=== PATIENT | female | born 1935 | race Hispanic/Latino ===

== ENCOUNTER 2020-10-30 10:30 | Inpatient (IN) | payer MEDICARE ==
--- NOTE | 2020-10-30 12:51 | XRay Report ---
RIGHT HIP 2 VIEW(S) INDICATION / CLINICAL INFORMATION: pain s/p fall COMPARISON: None available. FINDINGS: BONES / JOINT(S): No acute fracture or subluxation. No significant arthritis. Patient is status post open reduction internal fixation of the right femoral neck. SOFT TISSUES: No significant abnormality. ADDITIONAL FINDINGS: None. Signer Name: Srinivas wOen DO Signed: 10/30/2020 12:46 PM Workstation Name: [id number]
--- NOTE | 2020-10-30 13:28 | Emergency Department Report ---
ED General Adult HPI - General Chief complaint: Fall Stated complaint: FALL/RT HIP AND BACK Time Seen by Provider: 10/30/20 11:53 Source: patient, EMS Mode of arrival: Stretcher Limitations: No Limitations - History of Present Illness Initial comments: The patient presents to the emergency department the chief complaint of right hip pain. Patient states she got up to get water and fell in the bathroom onto her right hip. Patient denies loss of consciousness or hitting her head. Patient states the pain is worse with movement. The patient has a history of a hip replacement on the right side. Patient denies chest pain, shortness breath, or headache. -: Sudden Location: lower extremity Radiation: non-radiation Severity scale (0 -10): 4 Quality: aching Consistency: constant Improves with: rest Worsens with: movement Associated Symptoms: denies other symptoms Treatments Prior to Arrival: none - Related Data Previous Rx's Medication Instructions Recorded Last Taken Type traMADoL [Ultram] 50 mg PO Q6HR PRN #15 tablet 10/30/20 Unknown Rx Allergies Allergy/AdvReac Type Severity Reaction Status Date / Time codeine Allergy Rash Verified 10/30/20 11:36 ED Review of Systems ROS: Stated complaint: FALL/RT HIP AND BACK Other details as noted in HPI Comment: All other systems reviewed and negative Constitutional: denies: chills, fever Eyes: denies: eye pain, eye discharge, vision change ENT: denies: ear pain, throat pain Respiratory: denies: cough, shortness of breath, wheezing Cardiovascular: denies: chest pain, palpitations Endocrine: no symptoms reported Gastrointestinal: denies: abdominal pain, nausea, diarrhea Genitourinary: denies: urgency, dysuria, discharge Musculoskeletal: denies: back pain, joint swelling, arthralgia Skin: denies: rash, lesions Neurological: denies: headache, weakness, paresthesias Psychiatric: denies: anxiety, depression Hematological/Lymphatic: denies: easy bleeding, easy bruising ED Past Medical Hx - Past Medical History Previous Medical History?: Yes Hx Hypertension: Yes - Social History Smoking Status: Current Every Day Smoker Substance Use Type: None - Medications Home Medications: Home Medications Medication Instructions Recorded Confirmed Last Taken Type traMADoL [Ultram] 50 mg PO Q6HR PRN #15 tablet 10/30/20 Unknown Rx ED Physical Exam - General Limitations: No Limitations General appearance: alert, in no apparent distress - Head Head exam: Present: atraumatic, normocephalic - Eye Eye exam: Present: normal appearance, PERRL, EOMI - ENT ENT exam: Present: mucous membranes moist - Neck Neck exam: Present: normal inspection - Respiratory Respiratory exam: Present: normal lung sounds bilaterally. Absent: respiratory distress - Cardiovascular Cardiovascular Exam: Present: regular rate, normal rhythm. Absent: systolic murmur, diastolic murmur, rubs, gallop - GI/Abdominal GI/Abdominal exam: Present: soft, normal bowel sounds. Absent: distended, tenderness - Extremities Exam Extremities exam: Present: other (Tenderness palpation right hip) - Back Exam Back exam: Present: normal inspection - Neurological Exam Neurological exam: Present: alert, oriented X3, CN II-XII intact. Absent: motor sensory deficit - Psychiatric Psychiatric exam: Present: normal affect, normal mood - Skin Skin exam: Present: warm, dry, intact, normal color. Absent: rash ED Medical Decision Making - Radiology Data Radiology results: report reviewed Critical care attestation.: If time is entered above; I have spent that time in minutes in the direct care of this critically ill patient, excluding procedure time. ED Disposition Clinical Impression: Hip pain, right, Fall Disposition: DC- TO HOME OR SELFCARE Is pt being admited?: No Does the pt Need Aspirin: No Condition: Stable Instructions: Joint Pain, Hip Pain Additional Instructions: return if worse Referrals: PRIMARY MD YANNICK [Primary Care Provider] - 3-5 Days POLLY OCHOA MD [Staff Physician] - 3-5 Days Time of Disposition: 13:29
[2020-10-30] MEDS ORDERED: traMADol 50 MG TAB PO ONE (13:43)
--- NOTE | 2020-10-30 18:44 | Cat Scan Report ---
CT lower extremity RT wo con INDICATION: hip pain s/p fall can't bear. TECHNIQUE: All CT scans at this location are performed using the following dose modulation technique: Automated exposure control. CONTRAST: None. COMPARISON: Plain films earlier the same day. FINDINGS: Mildly comminuted, nondisplaced fractures involving the lateral aspect of the right sacrum, lateral aspect of the right superior ramus and the mid inferior pubic ramus. No additional fractures identified. Underlying osteopenia is moderate. 3 titanium screws affix the right femoral neck. Evaluation of the soft tissues demonstrates atherosclerotic ectasia of the aorta and iliac system and noninflamed diverticulosis at the sigmoid colon. No significant soft tissue injury. 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 IMPRESSION: 1. Nondisplaced fractures involving the right sacrum, right superior pubic ramus and right inferior p ubic ramus. 2. Underlying osteopenia. 3. Previous placement of 3 titanium screws at the right femoral neck. 4. Noninflamed colonic diverticulosis. 5. 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 Signer Name: Blake Ricks MD Signed: 10/30/2020 6:40 PM Workstation Name: [id number]
--- NOTE | 2020-10-30 19:00 | History and Physical Report ---
History of Present Illness Chief complaint: I fell and landed on my hip History of present illness: 85 YO Female with HTN, Nicotine Dependence presents ED for evaluation. Patient reports "I fell landed on my hip". Patient states that she was in her usual state of health. Patient states that she got up to get water while in the bathroom and fell onto the floor landing on her right hip. Patient denies loss of consciousness or striking her head. Patient states that she was unable to stand due to pain. EMS was notified and upon arrival the patient was found to be in distress and subsequently transported to [facility] for further care and evaluation of the aforementioned symptoms. The patient was seen and evaluated in the emergency department. All lab and imaging studies reviewed. Patient underwent CT scan of the pelvis and was found to have a sacral fracture as well as an inferior and superior pubic rami fractures which were not amenable to surgical invention at this time. Patient found to have intractable pain and is unable to stand. Patient admitted to surgical floor due to increased risk of worsening symptoms. Patient treated with pain control, supportive care. Physical therapy consulted. Patient denies fever, chills, chest pain, palpitation, productive cough, skin rash, recent ill contacts, or known exposure to COVID-19. No prior admission for review. No medication listed at time of admission for reconciliation. Advanced care planning conducted in ED. Case management consulted for assistance with discharge planning and long-term facility versus rehab placement. Past History Past Medical History: hypertension, other (See HPI) Past Surgical History: No surgical history, Other (Reviewed) Social history: , smoking. denies: alcohol abuse, prescription drug abuse Family history: hypertension Medications and Allergies Allergies Allergy/AdvReac Type Severity Reaction Status Date / Time codeine Allergy Rash Verified 10/30/20 11:36 Home Medications Medication Instructions Recorded Confirmed Last Taken Type traMADoL [Ultram] 50 mg PO Q6HR PRN #15 tablet 10/30/20 Unknown Rx Review of Systems Constitutional: other (I fell and landed on my hip), no weight loss, no weight gain, no fever, no chills Ears, nose, mouth and throat: no ear pain, no ear discharge, no decreased hearing, no nose pain, no nasal congestion, no nasal discharge Breasts: no change in shape Cardiovascular: no chest pain, no syncope Respiratory: no cough, no cough with sputum, no excessive sputum Gastrointestinal: no abdominal pain, no nausea, no vomiting Genitourinary Female: no flank pain, no dysuria, no urinary frequency, no urgency Rectal: no pain, no incontinence Musculoskeletal: other (Hip pain), no neck stiffness, no neck pain, no arm numbness/tingling, no low back pain Integumentary: no rash, no pruritis, no sores, no wounds, no boils Neurological: no head injury, no paralysis, no weakness, no parathesias, no tingling, no seizures Psychiatric: no anxiety, no sleep disturbances, no insomnia, no change in appetite, no change in libido, no suicidal ideation Endocrine: no cold intolerance, no heat intolerance, no polyphagia, no poly dipsia, no nocturia, no excessive sweating, no flushing Hematologic/Lymphatic: no easy bruising, no lymphadenopathy Allergic/Immunologic: no urticaria, no allergic rhinitis, no wheezing, no persistent infections, no angioedema Exam - Constitutional Vitals: Temp Pulse Resp BP Pulse Ox 75 18 163/58 72 L 10/30/20 12:01 10/30/20 15:31 10/30/20 15:31 10/30/20 15:31 General appearance: Present: mild distress - EENT Eyes: Present: PERRL ENT: hearing intact, clear oral mucosa - Neck Neck: Present: supple, normal ROM - Respiratory Respiratory effort: normal Respiratory: bilateral: CTA - Cardiovascular Heart Sounds: Present: S1 & S2. Absent: rub, click - Extremities Extremities: pulses symmetrical, No edema Peripheral Pulses: within normal limits - Abdominal General gastrointestinal: Present: soft, non-tender, non-distended, normal bowel sounds Female genitourinary: Present: normal - Integumentary Integumentary: Present: clear, warm, dry - Musculoskeletal Musculoskeletal: generalized weakness - Psychiatric Psychiatric: appropriate mood/affect, intact judgment & insight - Neurologic Neurologic: CNII-XII intact, moves all extremities, no gait normal Assessment and Plan - Patient Problems (1) Pelvic fracture Current Visit: Yes Status: Acute Plan to address problem: CT scan pelvis, supportive care, pain control, physical therapy consulted. Weightbearing as per physical therapy recommendations. (2) Sacral fracture Current Visit: Yes Status: Acute Plan to address problem: CT scan pelvis, supportive care, pain control, physical therapy consulted. Weightbearing as per physical therapy recommendation. (3) Uncontrolled pain Current Visit: Yes Status: Acute Plan to address problem: Pain control, supportive care, (4) Debility Current Visit: Yes Status: Acute Plan to address problem: Physical therapy consulted, case management consulted for assistance with discharge to long-term facility versus rehab placement. (5) Nicotine dependence Current Visit: Yes Status: Acute Qualifiers: Nicotine product type: cigarettes Substance use status: in withdrawal Qualified Code(s): F17.213 - Nicotine dependence, cigarettes, with withdrawal Plan to address problem: Smoke cessation counseling, supportive care, behavior change counseling, +15 minutes. (6) DVT prophylaxis Current Visit: Yes Status: Acute Plan to address problem: SCD bilateral lower extremities while in bed, prophylactic anticoagulation (7) Advance care planning Current Visit: Yes Status: Acute Plan to address problem: Disease education conducted, care plan discussed, diagnosis discussed, prognosis discussed. Patient is full code. Patient acknowledges understanding agree with care plan, +30 minutes.
[2020-10-30] MEDS ORDERED: MORPHINE 4 MG/1 ML INJ IV ONE (19:08)
[2020-10-30] MEDS ORDERED: ONDANSETRON 4 MG/2 ML INJ IV ONE (19:08)
[2020-10-30] MEDS ORDERED: ONDANSETRON 4 MG/2 ML INJ IV PRN (19:12)
[2020-10-30] MEDS ORDERED: ACETAMINOPHEN 325 MG TAB PO PRN (19:12)
[2020-10-30] MEDS ORDERED: ALBUTEROL 2.5 MG/3 ML NEBU IH PRN (19:12)
[2020-10-30] MEDS ORDERED: SODIUM CHLORIDE 0.9% 1000 ML 1,000 ML IV SCH (19:15)
[2020-10-30 19:33] LABS: Basophils # (Auto) 0.1 K/mm3 (0.0-0.1); Basophils % (Auto) 0.9 % (0.0-1.8); Eosinophils % (Auto) 0.2 % (0.0-4.3); Hematocrit 38.3 % (30.3-42.9); Lymphocytes % (Auto) 10.9 % (13.4-35.0); Mean Corpuscular HGB Conc 34 % (30-34); Mean Corpuscular Volume 86 fl (79-97); Monocytes # (Auto) 0.6 K/mm3 (0.0-0.8); Monocytes % (Auto) 5.8 % (0.0-7.3); Platelet Count 251 K/mm3 (140-440); Red Blood Count 4.45 M/mm3 (3.65-5.03); Red Cell Distribution Width 14.2 % (13.2-15.2)
[2020-10-30 19:40] LABS: Alanine Aminotransferase 12 units/L (7-56); Blood Urea Nitrogen 14 mg/dL (7-17); Calcium 9.4 mg/dL (8.4-10.2); Hemolysis Index 6
[2020-10-30 19:46] LABS: BUN/Creatinine Ratio 20
[2020-10-30 19:57] LABS: Partial Thromboplastin Time 31.9 Sec. (24.2-36.6)
[2020-10-30] MEDS: HYDROmorphone 1 MG/1 ML INJ IV PRN (20:20)
[2020-10-30] MEDS: HEPARIN 5,000 UNIT/1 ML VIAL SUB-Q SCH (22:10)
[2020-10-31] MEDS: HYDROmorphone 1 MG/1 ML INJ IV PRN ×2 (00:10→20:41)
[2020-10-31 07:01] LABS: Alanine Aminotransferase 10 units/L (7-56); Albumin 3.7 g/dL (3.9-5); Blood Urea Nitrogen 16 mg/dL (7-17); Calcium 9.3 mg/dL (8.4-10.2); Hemolysis Index 36
[2020-10-31 07:02] LABS: BUN/Creatinine Ratio 23
[2020-10-31 08:27] LABS: Basophils # (Auto) 0.1 K/mm3 (0.0-0.1); Basophils % (Auto) 0.8 % (0.0-1.8); Eosinophils # (Auto) 0.1 K/mm3 (0.0-0.4); Eosinophils % (Auto) 0.8 % (0.0-4.3); Hematocrit 35.5 % (30.3-42.9); Hemoglobin 12.1 gm/dl (10.1-14.3); Lymphocytes % (Auto) 10.6 % (13.4-35.0); Mean Corpuscular HGB Conc 34 % (30-34); Mean Corpuscular Volume 86 fl (79-97); Monocytes # (Auto) 0.6 K/mm3 (0.0-0.8); Monocytes % (Auto) 6.6 % (0.0-7.3); Platelet Count 228 K/mm3 (140-440); Red Blood Count 4.13 M/mm3 (3.65-5.03)
[2020-10-31] MEDS: HEPARIN 5,000 UNIT/1 ML VIAL SUB-Q SCH ×2 (09:32→23:12)
[2020-10-31] MEDS: oxyCODONE /ACETAMINOPHEN 5-325MG TAB PO PRN (12:51)
--- NOTE | 2020-10-31 15:10 | Progress Note ---
Assessment and Plan 85 YO Female with HTN, Nicotine Dependence presents ED for evaluation after having a fall. Patient underwent CT scan of the pelvis and was found to have a sacral fracture as well as an inferior and superior pubic rami fractures which were not amenable to surgical invention at this time. Patient found to have intractable pain and is unable to stand. Patient admitted to surgical floor due to increased risk of worsening symptoms. A/P -- Pelvic fracture cont supportive care, pain control, physical therapy consulted. Weightbearing as per physical therapy recommendations. PT eval pending -- Sacral fracture supportive care, pain control, physical therapy consulted. Weightbearing as per physical therapy recommendation. -- Uncontrolled pain Pain control, supportive care, -- Debility Physical therapy consulted, case management consulted for assistance with discharge to shelter facility versus rehab placement. -- Nicotine dependence Smoke cessation counseling, supportive care, behavior change counseling done --DVT prophylaxis SCD bilateral lower extremities while in bed, prophylactic anticoagulation --Disposition: Patient needs subacute rehab. Pending placement Daily clinical course: 10/31/20: resting on bed, appears uncomfortable, cont pain Mx as needed, Pending PT eval Subjective Date of service: 10/31/20 Interval history: Patient seen and examined no acute event o/n vitals stable c/o pelvic pain and unable to move w/o assistance PT eval pending Objective - Exam Narrative Exam: General appearance: Present: no acute distress, well-nourished elderly WF - EENT Eyes: PERRL, EOM intact ENT: hearing intact, clear oral mucosa Ears: bilateral: normal - Neck Neck: supple, normal ROM - Respiratory Respiratory effort: normal Respiratory: bilateral: CTA - Breasts Breasts: normal - Cardiovascular Rhythm: regular Heart Sounds: Present: S1 & S2. Absent: gallop, rub Extremities: pulses intact, No edema, normal color, Full ROM - Gastrointestinal General gastrointestinal: Present: soft, non-tender, non-distended, normal bowel sounds - Integumentary Integumentary: clear, warm, dry - Musculoskeletal Musculoskeletal: 1, strength equal bilaterally - Neurologic Neurologic: moves all extremities - Psychiatric Psychiatric: memory intact, appropriate mood/affect, intact judgment & insight - Constitutional Vitals: Vital Signs - 12hr 10/31/20 10/31/20 10/31/20 07:33 10:00 11:05 Temperature 98.2 F Pulse Rate 86 Respiratory 18 18 Rate Respiratory 18 Rate [Right Hip ] Blood Pressure 162/76 [Left] O2 Sat by Pulse 94 95 96 Oximetry 10/31/20 10/31/20 12:05 12:51 Temperature 98.9 F Pulse Rate 87 Respiratory 18 18 Rate Respiratory Rate [Right Hip ] Blood Pressure 131/92 [Left] O2 Sat by Pulse 96 Oximetry - Labs CBC & Chem 7: 10/31/20 07:36 10/31/20 04:44 Labs: Abnormal lab results 10/30/20 10/31/20 10/31/20 Range/Units 19:02 04:44 07:36 Lymph % (Auto) 10.9 L 10.6 L (13.4-35.0) % Lymph # (Auto) 1.0 L 1.0 L (1.2-5.4) K/mm3 Seg Neutrophils % 82.2 H 81.2 H (40.0-70.0) % Seg Neutrophils # 7.8 H 8.0 H (1.8-7.7) K/mm3 Carbon Dioxide 19 L (22-30) mmol/L Glucose 61 L (65-100) mg/dL Albumin 3.7 L (3.9-5) g/dL
[2020-11-01] MEDS ORDERED: hydrALAZINE 20 MG/1 ML INJ IV PRN (08:54)
[2020-11-01] MEDS: PANTOPRAZOLE 20 MG TAB PO SCH (09:24)
[2020-11-01] MEDS: HEPARIN 5,000 UNIT/1 ML VIAL SUB-Q SCH ×2 (09:24→22:31)
[2020-11-01] MEDS: amLODIPine 5 MG TAB PO SCH (09:24)
[2020-11-01] MEDS: oxyCODONE /ACETAMINOPHEN 5-325MG TAB PO PRN ×2 (09:36→22:30)
[2020-11-01] MEDS ORDERED: NON-FORMULARY EACH (Omeprazole [Omeprazole] 20 MG Tablet.Dr) PO SCH (10:00)
--- NOTE | 2020-11-01 13:09 | Progress Note ---
Assessment and Plan 85 YO Female with HTN, Nicotine Dependence presents ED for evaluation after having a fall. Patient underwent CT scan of the pelvis and was found to have a sacral fracture as well as an inferior and superior pubic rami fractures which were not amenable to surgical invention at this time. Patient found to have intractable pain and is unable to stand. Patient admitted to surgical floor due to increased risk of worsening symptoms. A/P -- Pelvic fracture cont supportive care, pain control, physical therapy consulted. Weightbearing as per physical therapy recommendations. PT recommended [facility] -- Sacral fracture supportive care, pain control, physical therapy consulted. Weightbearing as per physical therapy recommendation. -- Uncontrolled pain Pain control, supportive care, -- Debility Physical therapy consulted, case management consulted for assistance with discharge to retirement facility versus rehab placement. -- Nicotine dependence Smoke cessation counseling, supportive care, behavior change counseling done --DVT prophylaxis SCD bilateral lower extremities while in bed, prophylactic anticoagulation --Disposition: Patient needs subacute rehab. Pending placement Daily clinical course: 10/31/20: resting on bed, appears uncomfortable, cont pain Mx as needed, Pending PT eval 11/01/20: Pt clinically stable. PT recommended [facility]: CM notified, cont pain Mx as needed Subjective Date of service: 11/01/20 Interval history: Patient seen and examined no acute event o/n vitals stable, pt sitting on a wheel chair c/o pelvic pain and unable to move w/o assistance PT recommended [facility] Objective - Exam Narrative Exam: General appearance: Present: no acute distress, well-nourished elderly WF - EENT Eyes: PERRL, EOM intact ENT: hearing intact, clear oral mucosa Ears: bilateral: normal - Neck Neck: supple, normal ROM - Respiratory Respiratory effort: normal Respiratory: bilateral: CTA - Breasts Breasts: normal - Cardiovascular Rhythm: regular Heart Sounds: Present: S1 & S2. Absent: gallop, rub Extremities: pulses intact, No edema, normal color, Full ROM - Gastrointestinal General gastrointestinal: Present: soft, non-tender, non-distended, normal bowel sounds - Integumentary Integumentary: clear, warm, dry - Musculoskeletal Musculoskeletal: 1, strength equal bilaterally - Neurologic Neurologic: moves all extremities - Psychiatric Psychiatric: memory intact, appropriate mood/affect, intact judgment & insight - Constitutional Vitals: Vital Signs - 12hr 0811/01/20 11/01/20 04:28 08:38 09:23 Temperature 98.8 F Pulse Rate 84 84 Pulse Rate [ Apical] Respiratory 17 17 Rate Respiratory Rate [Right Hip ] Blood Pressure 164/77 Blood Pressure 164/77 [Left] O2 Sat by Pulse 95 94 Oximetry 11/01/20 11/01/20 11/01/20 09:24 09:36 09:54 Temperature Pulse Rate 84 Pulse Rate [ Apical] Respiratory 17 Rate Respiratory Rate [Right Hip ] Blood Pressure 164/77 Blood Pressure [Left] O2 Sat by Pulse 95 Oximetry 11/01/20 11/01/20 11/01/20 10:25 10:26 10:36 Temperature Pulse Rate Pulse Rate [ 88 Apical] Respiratory 16 15 Rate Respiratory 16 Rate [Right Hip ] Blood Pressure Blood Pressure [Left] O2 Sat by Pulse 96 Oximetry - Labs CBC & Chem 7: 10/31/20 07:36 10/31/20 04:44
[2020-11-02] MEDS: PANTOPRAZOLE 20 MG TAB PO SCH (09:49)
[2020-11-02] MEDS: amLODIPine 5 MG TAB PO SCH (09:49)
[2020-11-02] MEDS: HEPARIN 5,000 UNIT/1 ML VIAL SUB-Q SCH ×2 (09:50→21:33)
--- NOTE | 2020-11-02 18:38 | Progress Note ---
Assessment and Plan 85 YO Female with HTN, Nicotine Dependence presents ED for evaluation after having a fall. Patient underwent CT scan of the pelvis and was found to have a sacral fracture as well as an inferior and superior pubic rami fractures which were not amenable to surgical invention at this time. Patient found to have intractable pain and is unable to stand. Patient admitted to surgical floor due to increased risk of worsening symptoms. A/P -- Pelvic fracture cont supportive care, pain control, physical therapy consulted. Weightbearing as per physical therapy recommendations. PT recommended [facility] -- Sacral fracture supportive care, pain control, physical therapy consulted. Weightbearing as per physical therapy recommendation. -- Uncontrolled pain Pain control, supportive care, -- Debility Physical therapy consulted, case management consulted for assistance with discharge to [facility] facility versus rehab placement. -- Nicotine dependence Smoke cessation counseling, supportive care, behavior change counseling done --DVT prophylaxis SCD bilateral lower extremities while in bed, prophylactic anticoagulation --Disposition: Patient needs subacute rehab. Pending placement Daily clinical course: 10/31/20: resting on bed, appears uncomfortable, cont pain Mx as needed, Pending PT eval 11/01/20: Pt clinically stable. PT recommended [facility]: CM notified, cont pain Mx as needed 11/02/20: Patient states pain much improved, but unable to do movement w/o assistance. [facility]/SNF pending Subjective Date of service: 11/02/20 Interval history: Patient seen and examined no acute event o/n vitals stable, pt resting on bed c/o pelvic pain and unable to move w/o assistance PT recommended [facility] Objective - Exam Narrative Exam: General appearance: Present: no acute distress, well-nourished elderly WF - EENT Eyes: PERRL, EOM intact ENT: hearing intact, clear oral mucosa Ears: bilateral: normal - Neck Neck: supple, normal ROM - Respiratory Respiratory effort: normal Respiratory: bilateral: CTA - Breasts Breasts: normal - Cardiovascular Rhythm: regular Heart Sounds: Present: S1 & S2. Absent: gallop, rub Extremities: pulses intact, No edema, normal color, Full ROM - Gastrointestinal General gastrointestinal: Present: soft, non-tender, non-distended, normal bowel sounds - Integumentary Integumentary: clear, warm, dry - Musculoskeletal Musculoskeletal: 1, strength equal bilaterally - Neurologic Neurologic: moves all extremities - Psychiatric Psychiatric: memory intact, appropriate mood/affect, intact judgment & insight - Constitutional Vitals: Vital Signs - 12hr 11/02/20 11/02/20 11/02/20 07:37 09:48 09:49 Temperature 97.5 F L Pulse Rate 68 68 68 Respiratory 18 Rate Blood Pressure 134/69 136/67 136/67 O2 Sat by Pulse 94 Oximetry 11/02/20 11/02/20 11:12 16:02 Temperature 97.7 F 98.4 F Pulse Rate 67 82 Respiratory 18 18 Rate Blood Pressure 104/62 114/62 O2 Sat by Pulse 95 92 Oximetry - Labs CBC & Chem 7: 10/31/20 07:36 10/31/20 04:44
[2020-11-03] MEDS: PANTOPRAZOLE 20 MG TAB PO SCH (11:41)
[2020-11-03] MEDS: amLODIPine 5 MG TAB PO SCH (11:42)
[2020-11-03] MEDS: HEPARIN 5,000 UNIT/1 ML VIAL SUB-Q SCH ×2 (12:41→21:43)
--- NOTE | 2020-11-03 15:47 | Progress Note ---
Assessment and Plan 85 YO Female with HTN, Nicotine Dependence presents ED for evaluation after having a fall. Patient underwent CT scan of the pelvis and was found to have a sacral fracture as well as an inferior and superior pubic rami fractures which were not amenable to surgical invention at this time. Patient found to have intractable pain and is unable to stand. Patient admitted to surgical floor due to increased risk of worsening symptoms. A/P -- Pelvic fracture cont supportive care, pain control, physical therapy consulted. Weightbearing as per physical therapy recommendations. PT recommended [facility] -- Sacral fracture supportive care, pain control, physical therapy consulted. Weightbearing as per physical therapy recommendation. -- Uncontrolled pain Pain control, supportive care, -- Debility Physical therapy consulted, case management consulted for assistance with discharge to prison facility versus rehab placement. -- Nicotine dependence Smoke cessation counseling, supportive care, behavior change counseling done --DVT prophylaxis SCD bilateral lower extremities while in bed, prophylactic anticoagulation --Disposition: Patient needs subacute rehab. Pending placement Daily clinical course: 10/31/20: resting on bed, appears uncomfortable, cont pain Mx as needed, Pending PT eval 11/01/20: Pt clinically stable. PT recommended [facility]: CM notified, cont pain Mx as needed 11/02/20: Patient states pain much improved, but unable to do movement w/o assistance. [facility]/SNF pending 11/03/20: Patient resting on bed. Discussed with patient's son in details, [facility]/SNF pending. cont supportive care. Subjective Date of service: 11/03/20 Interval history: Patient seen and examined no acute event o/n vitals stable, pt resting on bed c/o pelvic pain and unable to move w/o assistance PT recommended [facility] - pending Objective - Exam Narrative Exam: General appearance: Present: no acute distress, well-nourished elderly WF - EENT Eyes: PERRL, EOM intact ENT: hearing intact, clear oral mucosa Ears: bilateral: normal - Neck Neck: supple, normal ROM - Respiratory Respiratory effort: normal Respiratory: bilateral: CTA - Breasts Breasts: normal - Cardiovascular Rhythm: regular Heart Sounds: Present: S1 & S2. Absent: gallop, rub Extremities: pulses intact, No edema, normal color, Full ROM - Gastrointestinal General gastrointestinal: Present: soft, non-tender, non-distended, normal bowel sounds - Integumentary Integumentary: clear, warm, dry - Musculoskeletal Musculoskeletal: 1, strength equal bilaterally - Neurologic Neurologic: moves all extremities - Psychiatric Psychiatric: memory intact, appropriate mood/affect, intact judgment & insight - Constitutional Vitals: Vital Signs - 12hr 11/03/20 11/03/20 11/03/20 05:29 07:43 10:46 Temperature 98.1 F 98.1 F Pulse Rate 67 69 Respiratory 18 18 Rate Blood Pressure 132/59 156/77 O2 Sat by Pulse 93 89 93 Oximetry 11/03/20 11:18 Temperature 98.0 F Pulse Rate 66 Respiratory 18 Rate Blood Pressure 121/54 O2 Sat by Pulse 93 Oximetry - Labs CBC & Chem 7: 10/31/20 07:36 10/31/20 04:44
[2020-11-04] MEDS: PANTOPRAZOLE 20 MG TAB PO SCH (09:19)
[2020-11-04] MEDS: amLODIPine 5 MG TAB PO SCH (09:20)
[2020-11-04] MEDS: HEPARIN 5,000 UNIT/1 ML VIAL SUB-Q SCH ×2 (09:20→22:01)
[2020-11-04] MEDS: oxyCODONE /ACETAMINOPHEN 5-325MG TAB PO PRN (09:24)
--- NOTE | 2020-11-04 15:53 | Progress Note ---
Assessment and Plan 85 YO Female with HTN, Nicotine Dependence presents ED for evaluation after having a fall. Patient underwent CT scan of the pelvis and was found to have a sacral fracture as well as an inferior and superior pubic rami fractures which were not amenable to surgical invention at this time. Patient found to have intractable pain and is unable to stand. Patient admitted to surgical floor due to increased risk of worsening symptoms. A/P -- Pelvic fracture cont supportive care, pain control, physical therapy consulted. Weightbearing as per physical therapy recommendations. PT recommended [facility] -- Sacral fracture supportive care, pain control, physical therapy consulted. Weightbearing as per physical therapy recommendation. -- Uncontrolled pain Pain control, supportive care, -- Debility Physical therapy consulted, case management consulted for assistance with discharge to detention facility versus rehab placement. -- Nicotine dependence Smoke cessation counseling, supportive care, behavior change counseling done --DVT prophylaxis SCD bilateral lower extremities while in bed, prophylactic anticoagulation --Disposition: Patient needs subacute rehab. Pending placement Daily clinical course: 11/04/20: resting on bed, appears comfortable eventhough c/o pelvic pain, Pending [facility]/SNF Subjective Date of service: 11/04/20 Interval history: Patient seen and examine no acute event o/n vitals stable c/o pelvic pain but improves with pain meds PT recommended [facility] Objective - Constitutional Vitals: Vital Signs - 12hr 11/04/20 11/04/20 11/04/20 05:30 07:35 09:19 Temperature 98.1 F 97.9 F Pulse Rate 66 65 65 Respiratory 18 16 Rate Blood Pressure 127/62 143/69 143/69 O2 Sat by Pulse 94 94 Oximetry 11/04/20 09:20 Temperature Pulse Rate 65 Respiratory Rate Blood Pressure 143/69 O2 Sat by Pulse Oximetry General appearance: Present: no acute distress, well-nourished - EENT Eyes: PERRL, EOM intact ENT: hearing intact, clear oral mucosa Ears: bilateral: normal - Neck Neck: supple, normal ROM - Respiratory Respiratory effort: normal Respiratory: bilateral: CTA - Breasts Breasts: normal - Cardiovascular Rhythm: regular Heart Sounds: Present: S1 & S2. Absent: gallop, rub Extremities: pulses intact, No edema, normal color, Full ROM - Gastrointestinal General gastrointestinal: Present: soft, non-tender, non-distended, normal bowel sounds - Integumentary Integumentary: clear, warm, dry - Musculoskeletal Musculoskeletal: 1, strength equal bilaterally - Neurologic Neurologic: moves all extremities - Psychiatric Psychiatric: memory intact, appropriate mood/affect, intact judgment & insight - Labs CBC & Chem 7: 10/31/20 07:36 10/31/20 04:44
[2020-11-05] MEDS: PANTOPRAZOLE 20 MG TAB PO SCH (10:33)
[2020-11-05] MEDS: amLODIPine 5 MG TAB PO SCH (11:34)
--- NOTE | 2020-11-05 11:46 | Discharge Summary ---
Providers - Providers Date of Admission: 10/30/20 19:12 Date of discharge: 11/05/20 Attending physician: TODD GIBSON 10/30/20 19:15 Consult to Case Management [CONS] Routine Services Needed at Discharge: Other Notified:: in am Additional Physician Instructions: Discharge planning to [facility] facility placement versus rehab placement Physical Therapy Evaluation and Treat [CONS] Routine Comment: Reason For Exam: Debility 11/04/20 12:16 Occupational Therapy Evaluate and Treat [CONS] Routine Comment: Reason For Exam: Debility Primary care physician: [employer] Hospitalization Condition: Stable Hospital course: 85 YO Female with HTN, Nicotine Dependence presents ED for evaluation. Patient reports "I fell landed on my hip". Patient states that she was in her usual state of health. Patient states that she got up to get water while in the bathroom and fell onto the floor landing on her right hip. Patient denies loss of consciousness or striking her head. Patient states that she was unable to stand due to pain. EMS was notified and upon arrival the patient was found to be in distress and subsequently transported to [facility] for further care and evaluation of the aforementioned symptoms. The patient was seen and evaluated in the emergency department. Patient underwent CT scan of the pelvis and was found to have a sacral fracture as well as an inferior and superior pubic rami fractures which were not amenable to surgical invention at this time. Patient found to have intractable pain and is unable to stand. Patient admitted to surgical floor due to increased risk of worsening symptoms. Patient treated with pain control, supportive care. Physical therapy consulted. 85 YO Female with HTN, Nicotine Dependence presents ED for evaluation after having a fall. Patient underwent CT scan of the pelvis and was found to have a sacral fracture as well as an inferior and superior pubic rami fractures which were not amenable to surgical invention at this time. Patient found to have intractable pain and is unable to stand. Patient admitted to surgical floor due to increased risk of worsening symptoms. A/P -- Pelvic fracture cont supportive care, pain control, physical therapy consulted. Weightbearing as per physical therapy recommendations. PT recommended [facility] -- Sacral fracture supportive care, pain control, physical therapy consulted. Weightbearing as per physical therapy recommendation. -- Uncontrolled pain Pain control, supportive care, -- Debility Physical therapy consulted, case management consulted for assistance with discharge to [facility] facility versus rehab placement. -- Nicotine dependence Smoke cessation counseling, supportive care, behavior change counseling done --DVT prophylaxis SCD bilateral lower extremities while in bed, prophylactic anticoagulation --Disposition: Patient needs subacute rehab. Pending placement Daily clinical course: 11/04/20: resting on bed, appears comfortable eventhough c/o pelvic pain, Pending [facility]/SNF 11/05/20 Patient stable, transfer to SNF Disposition: [facility] Final Discharge Diagnosis (Prints w/discharge instructions): 1.Fracture of pelvis, sacrum - Discharge Diagnoses (1) Debility Status: Acute (2) Fall Status: Acute (3) Pelvic fracture Status: Acute (4) Sacral fracture Status: Acute (5) Uncontrolled pain Status: Acute Core Measure Documentation - Palliative Care Palliative Care/ Comfort Measures: Not Applicable - Core Measures Any of the following diagnoses?: none Exam - Constitutional Vitals: Temp Pulse Resp BP Pulse Ox 98.7 F 73 16 170/73 94 11/05/20 07:55 11/05/20 07:55 11/05/20 07:55 11/05/20 07:55 11/05/20 10:00 Plan Activity: other (As per Rehab Facility) Diet: low fat, low cholesterol, low salt Plan of Treatment: 1.Follow up with Physician at [facility] in 2-3 days. Follow up with: JAMES LANIER MD [Primary Care Provider] - 3-5 Days POLLY OCHOA MD [Staff Physician] - 3-5 Days Prescriptions: Pantoprazole [Protonix TAB] 20 mg PO QDAY #30 tablet. traMADoL [Ultram] 50 mg PO Q6HR PRN #15 tablet PRN Reason: Pain
[2020-11-05] MEDS: oxyCODONE /ACETAMINOPHEN 5-325MG TAB PO PRN (12:33)
[2020-11-05] MEDS: HEPARIN 5,000 UNIT/1 ML VIAL SUB-Q SCH (12:38)
[2020-11-05 12:51] VITALS: BP 143/66
== END 2020-11-05 13:00 | DRG 552 ==
LOC: ED 10:30 → 3A 19:12 → 3B-SURG 21:28
PROVIDERS: ADMIT Internal Medicine; ATTEND Internal Medicine
DX: S32.19XA Other fracture of sacrum, initial encounter for closed fracture (principal); F17.213 Nicotine dependence, cigarettes, with withdrawal; S32.519A Fracture of superior rim of unspecified pubis, initial encounter for closed fracture; R53.81 Other malaise; Z20.822 Contact with and (suspected) exposure to COVID-19; I10 Essential (primary) hypertension; Z71.6 Tobacco abuse counseling; Z82.49 Family history of ischemic heart disease and other diseases of the circulatory system; Z88.5 Allergy status to narcotic agent; Y93.89 Activity, other specified; Y92.89 Other specified places as the place of occurrence of the external cause; Y99.8 Other external cause status
CPT/HCPCS: 36415; 80053; 85025; 85610; 85730; 94760; 96374; G0378; A9270-GY; J1170; J1644; J7030; U0003

== ENCOUNTER 2021-03-04 10:56 | Outpatient (CLI) | payer MEDICARE ==
--- NOTE | 2021-03-04 14:59 | XRay Report ---
Lumbar spine INDICATION: Back pain FINDINGS: Diffuse osteopenia seen throughout. There is a compression fracture of L1 vertebral body wi th loss of approximately 60-70% vertebral body height. Atherosclerotic changes seen throughout the ao rta. Signer Name: Luther Bailon MD Signed: 03/04/2021 2:55 PM Workstation Name: [id number]
--- NOTE | 2021-03-04 15:00 | XRay Report ---
LEFT HIP 3 VIEW(S) INDICATION / CLINICAL INFORMATION: FALL/ LT HIP PAIN COMPARISON: None available. FINDINGS: BONES / JOINT(S): No acute fracture or subluxation. 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 Moderate degenerative arthrosis left hip SOFT TISSUES: No significant abnormality. ADDITIONAL FINDINGS: Previous fracture ORIF right hip with 3 cannulated screws. Signer Name: Philip Mead MD Signed: 03/04/2021 2:55 PM Workstation Name: [id number]
== END 2021-03-04 10:57 | disposition home or self-care (01) ==
LOC: SPVIMAG 10:56
PROVIDERS: ATTEND Internal Medicine
DX: M16.12 Unilateral primary osteoarthritis, left hip (principal); I70.0 Atherosclerosis of aorta; M54.50 Low back pain, unspecified
CPT/HCPCS: 72100

== ENCOUNTER 2021-03-08 12:26 | Emergency (ER) | payer MEDICARE ==
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
--- NOTE | 2021-03-08 16:00 | XRay Report ---
CHEST 1 VIEW 03/08/2021 2:53 PM INDICATION / CLINICAL INFORMATION: fall, weakness. COMPARISON: None available. FINDINGS: SUPPORT DEVICES: None. HEART / MEDIASTINUM: No significant abnormality. LUNGS / PLEURA: No significant pulmonary or pleural abnormality. No pneumothorax. ADDITIONAL FINDINGS: No significant additional findings. IMPRESSION: 1. No acute findings. Signer Name: Woo Herman MD Signed: 03/08/2021 3:56 PM Workstation Name: [id number]
--- NOTE | 2021-03-08 16:01 | XRay Report ---
XR femur 2+V LT INDICATION / CLINICAL INFORMATION: fall leg leg pain. COMPARISON: None available. FINDINGS: BONES/JOINT(S): No acute fracture or subluxation. Mild osteoarthritis of the left hip joint. Mild gen eralized osteopenia. SOFT TISSUES: No significant abnormality. ADDITIONAL FINDINGS: None. Signer Name: Woo Herman MD Signed: 03/08/2021 3:57 PM Workstation Name: [id number]
--- NOTE | 2021-03-08 16:04 | XRay Report ---
XR pelvis 1-2V INDICATION / CLINICAL INFORMATION: fall left leg pain. COMPARISON: None available. FINDINGS: BONES/JOINT(S): No acute fracture or subluxation. Subacute to chronic appearing fractures in the righ t inferior and superior pubic rami. Previous internal fixation of the proximal right femur. Mild DJD in the left hip joint. SOFT TISSUES: No significant abnormality. ADDITIONAL FINDINGS: None. Signer Name: Woo Herman MD Signed: 03/08/2021 4:00 PM Workstation Name: [id number]
[2021-03-08 16:05] LABS: Basophils # (Auto) 0.1 K/mm3 (0.0-0.1); Eosinophils # (Auto) 0.3 K/mm3 (0.0-0.4); Hematocrit 36.9 % (30.3-42.9); Hemoglobin 11.9 gm/dl (10.1-14.3); Lymphocytes # (Auto) 1.4 K/mm3 (1.2-5.4); Lymphocytes % (Auto) 15.4 % (13.4-35.0); Mean Corpuscular HGB Conc 32 % (30-34); Mean Corpuscular Volume 88 fl (79-97); Monocytes # (Auto) 0.5 K/mm3 (0.0-0.8); Monocytes % (Auto) 5.8 % (0.0-7.3); Platelet Count 304 K/mm3 (140-440); Red Blood Count 4.21 M/mm3 (3.65-5.03); Red Cell Distribution Width 14.8 % (13.2-15.2)
[2021-03-08 16:41] LABS: Blood Urea Nitrogen 13 mg/dL (7-17); Calcium 9.1 mg/dL (8.4-10.2); Hemolysis Index 4
[2021-03-08] MEDS ORDERED: ACETAMINOPHEN 500 MG TAB PO ONE (16:43)
[2021-03-08 16:56] LABS: BUN/Creatinine Ratio 19
--- NOTE | 2021-03-08 17:36 | Cat Scan Report ---
CT head/brain wo con INDICATION / CLINICAL INFORMATION: 86 years Female; fall closed head injury. TECHNIQUE: Routine CT head without contrast. All CT scans at this location are performed using CT dos e reduction for ALARA by means of automated exposure control. 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 Similar fi ndings suggested on prior. Otherwise, no acute hemorrhage, mass effect, midline shift, hydrocephalus, or acute, large territori al infarct. [id number], diffuse cerebral and cerebellar atrophy suggested. Moderate to marked degree of hip pocampal atrophy suggested bilaterally. There are moderate to marked, confluent areas of decreased attenuation in the white matter of the cer ebral hemispheres, as well as the gangliocapsular regions. These are nonspecific findings and may be related to microangiopathy (hypertension, diabetes, atherosclerosis), given the patient's age. Mild p ontine disease suspected. CRANIOCERVICAL JUNCTION: No significant abnormality. ORBITS: No significant abnormality of visualized orbits. SINUSES / MASTOIDS: Mild mucosal thickening in the ethmoids and right sphenoid sinus. ADDITIONAL FINDINGS: There may be minimal subcutaneous soft tissue swelling in the left frontal regio n, laterally. No signs of underlying calvarial fracture. IMPRESSION: 1. No focal mass, intracranial hemorrhage, hydrocephalus, or acute, large territorial infarct. Signer Name: Shola Emerson MD, III Signed: 03/08/2021 5:31 PM Workstation Name: [id number]
--- NOTE | 2021-03-08 17:37 | Cat Scan Report ---
CT pelvis without contrast INDICATION : fall left hip, left leg pain. TECHNIQUE: Axial imaging performed through the pelvis without the use of contrast. All CT scans at this location are performed using CT dose reduction for ALARA by means of automated exposure control. 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 There is sclerosis and each respective sacral ala which suggests und erlying insufficiency fractures, age indeterminate. Normal alignment in the hips. Right femoral neck fracture fixation noted with no hardware complicatio n. No acute soft tissue abnormality identified. Incidental note made of mild ectasia of the infrarenal a bdominal aorta measuring 2.5 cm and the right common iliac artery measuring 1.2 cm. Extensive colonic diverticulosis is present without inflammation. IMPRESSION: 1. No acute abnormality involving the left hip. 2. Subacute/chronic-appearing right-sided superior and inferior pubic rami fractures. There are also likely subacute at earliest bilateral sacral insufficiency fractures without displacement. Bony scler osis suggests a more subacute/chronic nature. 3. Degenerative changes throughout the pelvis and incidental findings as above. Signer Name: Moises Dueñas MD Signed: 03/08/2021 5:33 PM Workstation Name: [id number]
--- NOTE | 2021-03-08 17:40 | Cat Scan Report ---
. CT cervical spine wo con INDICATION / CLINICAL INFORMATION: 86 years Female; fall closed head injury. TECHNIQUE: Axial CT images of the cervical spine were obtained. Sagittal and coronal reformatted images were pr oduced. All CT scans at this location are performed using CT dose reduction for ALARA by means of aut omated exposure control. COMPARISON: None available. FINDINGS: POST-SURGICAL CHANGES: None. ALIGNMENT: Mild excessive lordosis seen, most likely related to patient's kyphosis. VERTEBRAE: Mild loss of height seen at various levels, which appears to be on a chronic degenerative basis. Osseous foraminal narrowing seen on the left at C3-4, C4-5, C5-6, C6-7, and C7-T1, related to uncinat e and facet hypertrophy. Similar findings noted on the right at C3-4, C4-5, particularly C5-6. INTRAVERTEBRAL DISCS: Multiple disc space narrowing seen. Multilevel disc disease and ligament flavum hypertrophy noted. Borderline canal narrowing seen at C5-6 and perhaps C3-4 and C4-5. PARASPINAL SOFT TISSUES: No significant abnormality. ADDITIONAL FINDINGS: Significant emphysematous changes seen along apices. Atherosclerotic disease seen in the aorta. IMPRESSION: 1. No signs of acute bony trauma to the cervical spine. Signer Name: Shola Emerson MD, III Signed: 03/08/2021 5:36 PM Workstation Name: [id number]
[2021-03-08 18:42] LABS: Bilirubin,Urine NEG (Negative); Blood,Urine NEG (Negative); Color,Urine Yellow (Yellow); Mucus,Urine FEW /HPF; Protein,Urine <15 mg/dL mg/dL (Negative); Urobilinogen,Urine < 2.0 mg/dL (<2.0)
[2021-03-08] MEDS ORDERED: MAGNESIUM OXIDE 400 MG TAB PO STA (18:51)
[2021-03-08 20:25] VITALS: BP 121/58
--- NOTE | 2021-03-09 10:23 | Electrocardiograph Report ---
[facility] Test Date: 2021-03-08 Test Time: 16:45:07 Pat Name: KAY DEAN Department: Room: Gender: F Lineman: JARED : 1935 Requested By: TODD FLORES Order Number: [id number] Reading MD: Ryan Foote Measurements Intervals [place] Rate: 85 P: 0 MN: 78 QRS: 39 QRSD: 81 T: 54 QT: 382 QTc: 455 Interpretive Statements Sinus rhythm Multiple ventricular premature complexes nonspecific st-t No previous ECG available for comparison Electronically Signed On 03-09-2021 10:23:26 EST by Ryan Foote
== END 2021-03-08 19:55 | disposition home or self-care (01) ==
LOC: ED 12:26
DX: S09.90XA Unspecified injury of head, initial encounter (principal); M25.552 Pain in left hip; R53.81 Other malaise; F01.50 Vascular dementia, unspecified severity, without behavioral disturbance, psychotic disturbance, mood disturbance, and anxiety; E83.42 Hypomagnesemia; I10 Essential (primary) hypertension; Z88.5 Allergy status to narcotic agent; W18.39XA Other fall on same level, initial encounter; Y93.89 Activity, other specified; Y92.89 Other specified places as the place of occurrence of the external cause; Y99.8 Other external cause status
CPT/HCPCS: 36415; 70450; 71045; 72125; 72170; 72192; 80048; 80320; 81001; 82550; 83735; 84443; 84484; 85025; 93005; 99285; G0480

== ENCOUNTER 2021-10-18 14:32 | Emergency (ER) | payer MEDICARE ==
--- NOTE | 2021-10-18 18:05 | Emergency Department Report ---
ED Fall HPI - General Chief Complaint: Fall Stated Complaint: BACK PAIN Time Seen by Provider: 10/18/21 17:39 Source: EMS Mode of arrival: Stretcher Limitations: Other (Dementia) - History of Present Illness Initial Comments: 86-year-old female with history of dementia and hypertension brought in by ambulance complaining of moderate lower back pain status post a fall 2 days ago. Patient is a poor historian, but denies any other injuries. Denies headache denies chest pain, denies abdominal pain, and denies any difficulty ambulating. Patient is confused and believes that she is at a hotel looking for her son, and said that she sat in this bed because she needed somewhere to sit down. - Related Data Home Medications Medication Instructions Recorded Confirmed Last Taken amLODIPine/ATORVASTATIN 1 each PO DAILY 10/30/20 02/18/21 02/16/21 10:00 [Amlodipine-Atorvast 2.5-20 mg] labetaloL [Labetalol 200mg TAB] 200 mg PO Q12HR 10/30/20 02/18/21 02/16/21 11:00 Aspirin [Aspirin BABY CHEW TAB] 81 mg PO QDAY 11/03/20 02/18/21 02/16/21 11:00 Previous Rx's Medication Instructions Recorded Last Taken Type Pantoprazole [Protonix TAB] 20 mg PO QDAY #30 tablet. 11/05/20 02/16/21 10:00 Rx Magnesium Oxide [Mag-Ox] 400 mg PO QDAY #30 tablet 03/08/21 Unknown Rx Acetaminophen [Tylenol Extra 500 mg PO Q4HR PRN #28 10/18/21 Unknown Rx Strength] Allergies Allergy/AdvReac Type Severity Reaction Status Date / Time codeine Allergy Rash Verified 10/18/21 16:24 ED Review of Systems ROS: Stated complaint: BACK PAIN Other details as noted in HPI Comment: Unobtainable due to pts medical conditions (Patient history limited by dementia) Constitutional: no symptoms reported Eyes: denies: eye pain Respiratory: denies: shortness of breath Cardiovascular: denies: chest pain Gastrointestinal: denies: abdominal pain Musculoskeletal: back pain Neurological: confusion, other (Chronic dementia) ED Past Medical Hx - Past Medical History Previous Medical History?: Yes Hx Hypertension: Yes Hx Dementia: Yes (Vascular dementia) Additional medical history: CAD - Social History Smoking Status: Never Smoker Substance Use Type: None - Medications Home Medications: Home Medications Medication Instructions Recorded Confirmed Last Taken Type amLODIPine/ATORVASTATIN 1 each PO DAILY 10/30/20 02/18/21 02/16/21 10:00 History [Amlodipine-Atorvast 2.5-20 mg] labetaloL [Labetalol 200mg TAB] 200 mg PO Q12HR 10/30/20 02/18/21 02/16/21 11:00 History Aspirin [Aspirin BABY CHEW TAB] 81 mg PO QDAY 11/03/20 02/18/21 02/16/21 11:00 History Pantoprazole [Protonix TAB] 20 mg PO QDAY #30 tablet. 11/05/20 02/18/21 02/16/21 10:00 Rx Magnesium Oxide [Mag-Ox] 400 mg PO QDAY #30 tablet 03/08/21 Unknown Rx Acetaminophen [Tylenol Extra 500 mg PO Q4HR PRN #28 10/18/21 Unknown Rx Strength] ED Physical Exam - General Limitations: Physical Limitation General appearance: alert, other (Confused) - Head Head exam: Present: atraumatic - Eye Eye exam: Present: normal appearance - ENT ENT exam: Present: mucous membranes moist - Neck Neck exam: Present: normal inspection - Respiratory Respiratory exam: Present: normal lung sounds bilaterally. Absent: respiratory distress - Cardiovascular Cardiovascular Exam: Present: regular rate, normal rhythm. Absent: systolic murmur, diastolic murmur, rubs, gallop - GI/Abdominal GI/Abdominal exam: Present: soft, normal bowel sounds - Extremities Exam Extremities exam: Present: normal inspection - Back Exam Back exam: Present: full ROM, tenderness, paraspinal tenderness, vertebral tenderness. Absent: CVA tenderness (L), muscle spasm - Neurological Exam Neurological exam: Present: alert, altered, CN II-XII intact, abnormal gait. Absent: oriented X3, motor sensory deficit - Psychiatric Psychiatric exam: Present: anxious. Absent: depressed, agitated, suicidal ideation - Skin Skin exam: Present: warm, dry, intact, normal color. Absent: rash ED Course Vital Signs 10/18/21 10/18/21 16:04 21:13 Temperature 97.3 F L 97.6 F Pulse Rate 72 82 Respiratory 16 16 Rate Blood Pressure 152/82 Blood Pressure 116/86 152/82 [Left] O2 Sat by Pulse 95 95 Oximetry ED Medical Decision Making - Differential Diagnosis Back fracture, sprain, strain, muscle spasm Critical care attestation.: If time is entered above; I have spent that time in minutes in the direct care of this critically ill patient, excluding procedure time. ED Disposition Clinical Impression: AAA (abdominal aortic aneurysm) without rupture Fall Qualifiers: Encounter type: initial encounter Qualified Code(s): W19.XXXA - Unspecified fall, initial encounter Lumbar vertebral fracture Qualifiers: Encounter type: subsequent encounter Lumbar vertebra fracture level: L1 Fracture type: closed Fracture morphology: wedge compression Fracture healing: with routine healing Qualified Code(s): S32.010D - Wedge compression fracture of first lumbar vertebra, subsequent encounter for fracture with routine healing Thoracic compression fracture Qualifiers: Encounter type: initial encounter Thoracic vertebra fracture level: T12 Quali fied Code(s): S22.080A - Wedge compression fracture of T11-T12 vertebra, initial encounter for closed fracture Disposition: 01 HOME / SELF CARE / HOMELESS Is pt being admited?: No Condition: Stable Instructions: Thoracic Spine Fracture, Abdominal Aortic Aneurysm, [id number], Lumbar Spine Fracture, Spinal Compression Fracture Prescriptions: Acetaminophen [Tylenol Extra Strength] 500 mg PO Q4HR PRN #28 PRN Reason: Pain , Severe (7-10) Referrals: PRIMARY CARE, [Primary Care Provider] - 3-5 Days YAMILA NEELY MD [Staff Physician] - 3-5 Days Time of Disposition: 00:06
--- NOTE | 2021-10-18 19:07 | XRay Report ---
XR spine lumbosacral 2-3V HISTORY: Fall and back pain rule out fracture COMPARISON: None. TECHNIQUE: Xrays of the lumbar spine obtained. FINDINGS: Vertebrae: Remote T12 and L1 vertebral body height loss. Normal alignment. Vertebral body heights a re preserved. Spondylosis:Mild diffuse spondylosis. IMPRESSION: 1. No acute findings. Chronic appearing compression fractures at T12 and L1. Signer Name: Hadley Fuentes MD Signed: 10/18/2021 7:03 PM Workstation Name: [id number]
--- NOTE | 2021-10-18 19:56 | Cat Scan Report ---
CT head/brain wo con INDICATION / CLINICAL INFORMATION: 86 years Female; Fall and confusion rule out intracranial hemorrhage . TECHNIQUE: Routine CT head without contrast. All CT scans at this location are performed using CT dos e reduction for ALARA by means of automated exposure control. Motion artifact. COMPARISON: 03/08/2021 FINDINGS: BRAIN / INTRACRANIAL CONTENTS: No acute hemorrhage, mass effect, midline shift, hydrocephalus, or acu te, large territorial infarct. [id number], diffuse cerebral and mild cerebellar atrophy. Moderate to marked, right greater von n left, degree of hippocampal atrophy suggested bilaterally. There are moderate to marked, somewhat confluent areas of decreased attenuation in the white matter o f the cerebral hemispheres, as well as the gangliocapsular regions. These are nonspecific findings an d may be related to microangiopathy (hypertension, diabetes, atherosclerosis), given the patient's ag e. It might be difficult to evaluate for small areas of ischemia without diffusion imaging by MRI. CRANIOCERVICAL JUNCTION: No significant abnormality. ORBITS: No significant abnormality of visualized orbits. SINUSES / MASTOIDS: Mild mucosal thickening seen in the right sphenoid sinus. ADDITIONAL FINDINGS: Bilateral temporomandibular joint disease noted. Relatively mild atherosclerotic disease is seen in the anterior and posterior circulation. IMPRESSION: 1. No focal mass, hemorrhage, hydrocephalus, or acute, large territorial infarct. Signer Name: Shola Emerson MD, III Signed: 10/18/2021 7:51 PM Workstation Name: [id number]
--- NOTE | 2021-10-18 20:22 | Cat Scan Report ---
CT cervical spine wo con INDICATION / CLINICAL INFORMATION: 86 years Female; Fall and confusion rule out C-spine injury. TECHNIQUE: Axial CT images of the cervical spine were obtained. Sagittal and coronal reformatted images were pr oduced. All CT scans at this location are performed using CT dose reduction for ALARA by means of aut omated exposure control. COMPARISON: None available. FINDINGS: POST-SURGICAL CHANGES: None. ALIGNMENT: Mild excessive lordosis seen, related to patient's kyphosis scoliosis of the upper thoraci c spine. VERTEBRAE: There is mild loss of height at C4, C5, C6-findings appear to be on a chronic basis. Significant osseous foraminal narrowing is seen on the right at C5-6, related uncinate and facet hy pertrophy. Similar findings noted on the left at C3-4, C4-5, and C5-6. Multilevel, significant facet hypertrophy noted. INTRAVERTEBRAL DISCS: Disc space narrowing seen at C5-6 and C6-7. Mild disc disease seen at various l evels. Mild canal narrowing suggested at C5-6. PARASPINAL SOFT TISSUES: No significant abnormality. ADDITIONAL FINDINGS: Significant emphysematous changes seen in the lung apices. Emphysematous changes seen in the lung apices. Desiccated secretions suggested along the posterior wall of the trachea, approximately 2-3 cm inferio r to the glottis. IMPRESSION: 1. No signs of acute bony trauma to the cervical spine. Signer Name: Shola Emerson MD, III Signed: 10/18/2021 8:18 PM Workstation Name: [email or web address]
[2021-10-18 21:17] VITALS: BP 152/82
--- NOTE | 2021-10-18 22:31 | Cat Scan Report ---
CT ABDOMEN AND PELVIS WITHOUT CONTRAST INDICATION / CLINICAL INFORMATION: abdominal pain s/p fall, assess for pelvis fracture. TECHNIQUE: Axial CT images were obtained through the abdomen and pelvis without IV contrast. All CT scans at this location are performed using CT dose reduction for ALARA by means of automated exposure control. COMPARISON: CT pelvis dated 03/08/21. CT lumbar spine dated 02/17/21. FINDINGS: LOWER CHEST: No acute abnormality. LIVER: No significant abnormality. GALLBLADDER: Distended with a small calcified gallstone. No wall thickening or inflammation. BILE DUCTS: No significant abnormality. PANCREAS: No significant abnormality. SPLEEN: No significant abnormality. ADRENALS: No significant abnormality. RIGHT KIDNEY / URETER: No significant abnormality. LEFT KIDNEY / URETER: No significant abnormality. STOMACH / SMALL BOWEL: No significant abnormality. COLON: Diverticulosis without acute inflammation. Moderate amount of fecal material throughout the co lefty. APPENDIX: Not visualized. PERITONEUM: No free fluid. No free air. No fluid collection. LYMPH NODES: No significant adenopathy. AORTA / ARTERIES: Infrarenal abdominal aortic aneurysm measuring 3.9 cm AP by 4.2 cm transverse as se en on axial series 2 image 64. Moderate atherosclerotic calcification without acute abnormality. IVC / VEINS: No significant abnormality. URINARY BLADDER: No significant abnormality. REPRODUCTIVE ORGANS: Uterus is absent. No significant adnexal abnormality. ADDITIONAL FINDINGS: None. SKELETAL SYSTEM: Old, healed fractures of the right sacral ala and right superior/inferior pubic rami . Interval development of mild compression fracture of T12. Chronic compression fracture of L1 with s uperior endplate depression at L2. 3 percutaneous pins across the right femoral neck. No acute pelvic or hip fracture. IMPRESSION: 1. No acute pelvic or hip fracture. Interval development of T12 compression fracture which may be acu te or subacute. 2. Old healed fractures of the right sacral ala and right superior/inferior pubic rami. Chronic compr ession fracture of L1. 3. Cholelithiasis. 4. Infrarenal abdominal aortic aneurysm measuring up to 4.2 cm. No acute abnormality. Signer Name: Chana Hunter MD Signed: 10/18/2021 10:27 PM Workstation Name: [id number]
--- NOTE | 2021-10-18 22:33 | Cat Scan Report ---
CT LUMBAR SPINE WITHOUT CONTRAST INDICATION / CLINICAL INFORMATION: abdominal pain s/p fall, assess for acute fracture. TECHNIQUE: Axial CT images were obtained through the lumbar spine. Sagittal and coronal reformatted i mages were produced. All CT scans at this location are performed using CT dose reduction for ALARA by means of automated exposure control. COMPARISON: CT abdomen pelvis performed at the same time. CT lumbar spine dated 02/17/21 FINDINGS: VERTEBRAE: Chronic compression fracture of L1 with 30% height loss is unchanged. Interval development of T12 compression fracture with 20% height loss. Mild superior plate depression at L2 is unchanged. ALIGNMENT: No significant abnormality. DISC SPACES: No significant abnormality. FACET JOINTS: No significant abnormality. SPINAL CANAL: No significant abnormality. SACRUM:Old, healed right sacral alar fracture. PARASPINAL SOFT TISSUES: Infrarenal abdominal aortic aneurysm better seen on CT abdomen for the same time. ADDITIONAL FINDINGS: None. IMPRESSION: 1. Interval development of T12 compression fracture with 20% height loss. This finding may be acute v ersus subacute but is new since February 2021. 2. Chronic compression fracture of L1 is unchanged. 3. AAA. Please see CT abdomen pelvis performed the same time for further details. Signer Name: Chana Hunter MD Signed: 10/18/2021 10:29 PM Workstation Name: [id number]
== END 2021-10-19 01:06 | disposition home or self-care (01) ==
LOC: ED 14:32
DX: S32.019A Unspecified fracture of first lumbar vertebra, initial encounter for closed fracture (principal); S22.019A Unspecified fracture of first thoracic vertebra, initial encounter for closed fracture; I71.4 Abdominal aortic aneurysm, without rupture; I10 Essential (primary) hypertension; F03.90 Unspecified dementia, unspecified severity, without behavioral disturbance, psychotic disturbance, mood disturbance, and anxiety; Z98.890 Other specified postprocedural states; Z88.5 Allergy status to narcotic agent; W19.XXXA Unspecified fall, initial encounter; Y93.89 Activity, other specified; Y92.89 Other specified places as the place of occurrence of the external cause; Y99.8 Other external cause status
CPT/HCPCS: 70450; 72100; 72125; 72131; 74176; 99284